=== PATIENT | female | born 1975 | race Two or more races ===

== ENCOUNTER 2022-06-22 08:12 | Day surgery (SDC) | payer BC ==
[2022-06-18 14:52] VITALS: BMI 27.6
[2022-06-22 11:15] VITALS: TEMP 97.7
[2022-06-22 11:23] VITALS: BP 110/70; RESP 18
[2022-06-22 11:24] VITALS: PULSE 64
== END 2022-06-22 11:24 | disposition home or self-care (01) ==
LOC: FASU-ENDO 08:12
PROVIDERS: ATTEND Internal Medicine Gastroenterology
PROC: 0DBK8ZX Excision of Ascending Colon, Via Natural or Artificial Opening Endoscopic, Diagnostic (ICD-10-PCS; principal; 2022-06-22 09:47)
DX: Z12.11 Encounter for screening for malignant neoplasm of colon (principal); K63.5 Polyp of colon
CPT/HCPCS: 84703; 88305-TC